=== PATIENT | male | born 1950 | race Caucasian/White ===

== ENCOUNTER → 2024-03-29 | Outpatient (CLI) | payer MEDICARE, SELFPAY ==
--- NOTE | 2024-03-29 07:42 | CT_ITS ---
PROCEDURE: CTA ABD/PELVIS W/WO CONTRAST REASON FOR EXAM: Status post aortic endovascular stent grafting. COMPARISON: None. TECHNIQUE: CTA imaging of the abdomen and pelvis with intravenous contrast. 3D reconstructions. IV CONTRAST: 100 mL of Isovue 370. FINDINGS: Endovascular Stent Graft: Proximal attachment: Infrarenal abdominal aorta. Distal attachment (right): Right common iliac artery Distal attachment (left): Left common iliac artery Maximum sac size: 4.3 cm x 4.3 cm Endoleak: No evidence of endoleak. Aorta: Abdominal aortic aneurysm status-post stent graft repair. Iliac Arteries: Endoluminal stent grafting is seen. 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 Celiac: Normal SMA: Normal PRUDENCE : Occluded proximally Right Renal: Normal Left Renal: Normal Other Findings: Gallstones within the gallbladder lumen. Fatty infiltration of the liver. There is evidence of bilateral renal cortical thinning. A Vasquez catheter is seen within a decompressed urinary bladder. Unremarkable CT/CTA Abd/Pelvis W/WO Contrast IMPRESSION: Endoluminal stent grafting. No evidence of endoluminal leak. One or more dose reduction techniques were used (e.g., Automated exposure contr ol, adjustment of the mA and/or kV according to patient size, use of iterative reconstruction technique). Reading Location: [place] [id number]
[2024-03-29 08:16] LABS: CREATININE FINGERSTICK 1.1 mg/dL (0.70-1.30); EGFR FINGERSTICK > 60.0000 mL/min (>60)
== END | disposition home or self-care (01) ==
LOC: CT 07:35
PROVIDERS: PCP Internal Medicine; Referring Provider Surgery; Visit Provider Surgery
DX: I71.43 Infrarenal abdominal aortic aneurysm, without rupture (principal)
CPT/HCPCS: 74174; Q9967